=== PATIENT | male | born 1965 | race Caucasian/White ===

== ENCOUNTER 2019-03-13 05:28 | Inpatient (IN) | payer BC ==
[2019-03-13] MEDS ORDERED: Scopolamine 1.5 MG Transdermal Patch TRDERM SCH (05:45)
[2019-03-13] MEDS ORDERED: Gabapentin 300 MG Cap PO ONE (05:45)
[2019-03-13] MEDS ORDERED: Celecoxib 200 MG Cap PO ONE (05:45)
[2019-03-13] MEDS ORDERED: Acetaminophen 500 MG Tab PO ONE (05:45)
[2019-03-13] MEDS ORDERED: Dextrose 5%-Lactated Ringers 1,000 ML IV SCH (06:00)
[2019-03-13] MEDS ORDERED: cefOXitin 2 GM Vial ONE (06:59)
[2019-03-13] MEDS ORDERED: fentaNYL 250 MCG/5 ML SDV ONE ×2 (07:13→07:59)
[2019-03-13] MEDS ORDERED: Ondansetron 4 MG/2 ML SDV ONE (07:14)
[2019-03-13] MEDS ORDERED: Dexamethasone 4 MG/ML SDV ONE (07:14)
[2019-03-13] MEDS ORDERED: Succinylcholine 200 MG/10 ML MDV ONE (07:14)
[2019-03-13] MEDS ORDERED: Propofol 200 MG/20 ML SDV ONE (07:14)
[2019-03-13] MEDS ORDERED: Glycopyrrolate 0.2 MG/ML 5 ML MDV ONE (07:14)
[2019-03-13] MEDS ORDERED: Neostigmine Methylsulfate 1 MG/ML 5 ML Syringe ONE (07:14)
[2019-03-13] MEDS ORDERED: Rocuronium 50 MG/5 ML Vial ONE ×2 (07:14→07:59)
[2019-03-13] MEDS ORDERED: Lactated Ringers 1,000 ML ONE (07:18)
[2019-03-13] MEDS ORDERED: cefOXitin 2 GM in Sodium Chloride 0.9% 50 ML IV ONE (07:30)
[2019-03-13] MEDS ORDERED: Ketamine 50 MG in Sodium Chloride 0.9% 49.5 ML IV SCH (09:00)
[2019-03-13] MEDS ORDERED: Lidocaine 2% 100 MG/5 ML Syringe IVPUSH SCH (09:00)
[2019-03-13] MEDS ORDERED: Lidocaine 0.4%/D5W 2 GM/500 ML BAG IV SCH (09:00)
[2019-03-13] MEDS ORDERED: Ketamine 500 MG/5 ML MDV IV SCH (09:00)
[2019-03-13] MEDS ORDERED: hydrOXYzine HCl 100 MG/2 ML SDV IM ONE (09:40)
[2019-03-13] MEDS ORDERED: HYDROmorphone 1 MG/ML Syringe IV PRN (11:05)
[2019-03-13] MEDS ORDERED: SCOPOLAMINE PATCH CHECK TOP SCH (11:22)
[2019-03-13] MEDS ORDERED: hydrOXYzine HCl 100 MG/2 ML SDV IM PRN (11:22)
[2019-03-13] MEDS ORDERED: Metoclopramide 10 MG/2 ML SDV IVPUSH PRN (11:22)
[2019-03-13] MEDS ORDERED: Labetalol 20 MG/4 ML Syringe IVPUSH PRN (11:22)
[2019-03-13] MEDS ORDERED: diphenhydrAMINE 50 MG/ML SDV IVPUSH PRN (11:22)
[2019-03-13] MEDS: cefOXitin 2 GM in Sodium Chloride 0.9% 50 ML IV SCH ×2 (12:40→17:49)
[2019-03-13] MEDS ORDERED: Pantoprazole 40 MG Vial IVPUSH SCH (13:00)
[2019-03-13] MEDS: Gabapentin 250 MG/5 ML Solution ML 470 ML Bottle PO SCH ×2 (13:54→20:58)
[2019-03-13] MEDS: Dextrose 5%-Lactated Ringers 1,000 ML IV SCH (14:01)
[2019-03-13] MEDS: Ondansetron 4 MG/2 ML SDV IVPUSH PRN (14:02)
[2019-03-13] MEDS ORDERED: MVI, Adult with Vitamin K 10 ML, Thiamine 200 MG, Chromium/Copper/Mang/Selen/Zn 1 ML in... IV SCH ×4 (16:00)
[2019-03-13] MEDS: Acetaminophen 325 MG Tab PO SCH ×2 (16:28→20:59)
[2019-03-13] MEDS ORDERED: Tranexamic Acid 1,000 MG in Sodium Chloride 0.9% 50 ML IV ONE ×2 (16:30→19:30)
[2019-03-13] MEDS ORDERED: Coagulation Factor VIIa Recombinant (per MCG) 2 MG Vial IVPUSH ONE (18:09)
[2019-03-13] MEDS: HYDROmorphone 0.5 MG/0.5 ML Syringe IVPUSH PRN (21:02)
[2019-03-14] MEDS: cefOXitin 2 GM in Sodium Chloride 0.9% 50 ML IV SCH (00:02)
[2019-03-14] MEDS: Dextrose 5%-Lactated Ringers 1,000 ML IV SCH ×2 (00:04→06:51)
[2019-03-14] MEDS: HYDROmorphone 0.5 MG/0.5 ML Syringe IVPUSH PRN ×2 (02:47→07:03)
[2019-03-14] MEDS: Ondansetron 4 MG/2 ML SDV IVPUSH PRN ×4 (02:50→20:20)
[2019-03-14] MEDS ORDERED: Iopamidol 612 MG/ML 50 ML SDV PO ONE (02:59)
[2019-03-14] MEDS: Acetaminophen 325 MG Tab PO SCH ×4 (03:36→22:20)
--- NOTE | 2019-03-14 04:00 | CRLCR ---
Indication: Status post Albaro-en-Y gastric bypass Technique: KUB 2 view Comparison: None Findings/Impression: : Two views of the abdomen demonstrate oral contrast within the distal esophagus, gastric pouch, and duodenum. No definite oral contrast extravasation identified. SALO drain seen in the left upper quadrant. Nonspecific bowel gas pattern. Dictated by Cinda Dacosta MD @ Mar 14 2019 3:57AM Signed by Dr. Cinda Dacosta @ Mar 14 2019 3:58AM
[2019-03-14] MEDS ORDERED: Tranexamic Acid 1,000 MG in Sodium Chloride 0.9% 50 ML IV ONE ×2 (06:54→07:30)
[2019-03-14] MEDS ORDERED: Coagulation Factor VIIa Recombinant (per MCG) 2 MG Vial IVPUSH STA (06:55)
[2019-03-14] MEDS ORDERED: Coagulation Factor VIIa Recombinant (per MCG) 2 MG Vial IVPUSH ONE (07:30)
[2019-03-14] MEDS ORDERED: Ondansetron 4 MG Tab.DIS PO PRN (07:42)
[2019-03-14] MEDS ORDERED: Dextrose 5%-Lactated Ringers 1,000 ML IV SCH (07:45)
[2019-03-14] MEDS: Celecoxib 200 MG Cap PO SCH (08:02)
[2019-03-14] MEDS: Gabapentin 250 MG/5 ML Solution ML 470 ML Bottle PO SCH ×3 (08:52→20:20)
--- NOTE | 2019-03-14 10:39 | PN ---
DATE OF SERVICE: 03/14/2019 SUBJECTIVE: Albin has had quite a bit of leaking around the SALO drain. He did have 2 doses of tranexamic acid and one dose of factor 7. He has been up walking and reported that he is quite sleepy. Vital signs, no fever but he has been tacky since he has been in the hospital and blood pressure has been slightly elevated. Pain has been controlled, he had 2 doses of IV Dilaudid. Remainder of review of systems negative for any pertinent positives and negatives. Oral intake 810, urine output 325 is recorded, and SALO drain 410. OBJECTIVE: GENERAL: Saleem Michelle is a 53-year-old male. He is alert and orientated. He was seen walking in the ro prior to rounds and then sitting in the chair. VITAL SIGNS: TPR is 98.5, 101, 18, blood pressure 161/85. HEENT: Negative. NECK: Supple. HEART: Regular rate and rhythm. LUNGS: Clear. ABDOMEN: Abdominal binder is on. SALO drain has light pink serosanguineous drainage. EXTREMITIES: Without peripheral edema. ASSESSMENT: Laparoscopic sleeve gastrectomy. PLAN: 1. Communication order to give activated VII and tranexamic acid IV now. 2. Discontinue scopolamine patch. 3. Communication order, 3 med cups at bedside, drink 1 every 20 minutes, record. 4. May shower. 5. Step 2 gastric bypass diet with no cereal. 6. Decrease IV to 100 mL per hour. 7. Atarax 25 mg p.o. q.4 hours p.r.n. pain, Zofran ODT 4 mg every 4 hours p.r.n. nausea and vomiting. 8. Discontinue IV Dilaudid and discontinue scopolamine patch. He will be seen by Kd in the Bariatric Department. He misplaced his consultation booklet. Discussion regarding energy protocol and when he can fly postoperatively. We will evaluate p.r.n. or in a.m. Anna Tijerina PA-C /[id number]
[2019-03-14] MEDS: Pantoprazole 40 MG Delayed-Release Granules 1 Packet PO SCH (10:44)
[2019-03-14] MEDS ORDERED: MVI, Adult with Vitamin K 10 ML, Thiamine 200 MG, Chromium/Copper/Mang/Selen/Zn 1 ML in... IV SCH ×4 (16:00)
[2019-03-14] MEDS: Heparin Sodium 5,000 Units/ML Vial SUBCUT SCH (18:51)
[2019-03-14] MEDS: hydrOXYzine HCl 25 MG Tab PO PRN (20:20)
[2019-03-15] MEDS ORDERED: Nitroglycerin 0.4 MG Tab.SL SL ONE (04:54)
[2019-03-15] MEDS: Furosemide 20 MG/2 ML VIAL ONE ×2 (05:00→05:28)
[2019-03-15] MEDS ORDERED: Furosemide 20 MG/2 ML VIAL IVPUSH ONE ×2 (05:15→12:00)
[2019-03-15] MEDS: Acetaminophen 325 MG Tab PO SCH ×4 (05:17→21:08)
[2019-03-15] MEDS ORDERED: Furosemide 20 MG/2 ML VIAL IVPUSH SCH (05:30)
[2019-03-15] MEDS ORDERED: Sodium Chloride 0.9% 100 ML IV STA (05:37)
[2019-03-15] MEDS ORDERED: Iopamidol 755 Mg/ML 100 ML Bottle IV STA (05:37)
[2019-03-15] MEDS: Heparin Sodium 5,000 Units/ML Vial SUBCUT SCH (06:56)
--- NOTE | 2019-03-15 06:59 | PCM.CONS ---
H&P History of Present Illness - General Date of Service: 03/15/19 Admit Problem/Dx: Admission Diagnosis/Problem Admission Diagnosis/Problem Gastrectomy Source of Information: Patient, Provider History Limitations: Reports: No Limitations - History of Present Illness Initial Comments - Free Text/Narative: CC: I got dizzy and my chest was tight HPI: Saleem is postop day 2 following a gastric sleeve. His immediate postop period was complicated by some bleeding and he did receive tranexamic acid as well as activated factor VII. I was asked to see him early this morning by Dr. Beach regarding chest tightness. The patient reports that he got out of bed to go to the bathroom. He was dizzy and a little lightheaded. He also developed mild to moderate chest tightness in the upper portion of his chest. He described the pain as pulsating or spasm-like. The pain did not radiate. He did not have associated nausea, shortness of breath or diaphoresis. Dr. Beach was contacted and he received a dose of nitroglycerin which relieved the pain. He is not aware of anything that makes the pain worse. He has never had pain like this before. He has not had a good bowel movement yet since surgery. He does intermittently require oxygen but does not feel significantly short of breath. Vital signs have been stable since he had some hypertension in the immediate postoperative period. He has not had any fevers. 6 Pain Score (Numeric/FACES): 6 - Related Data Allergies/Adverse Reactions: Allergies Allergy/AdvReac Type Severity Reaction Status Date / Time No Known Allergies Allergy Verified 03/13/19 05:54 Home Medications: Home Meds Multivitamin [Multivitamins] 2 tab PO DAILY 03/10/19 [History] Sildenafil [Revatio] 1 - 5 tab PO ASDIRECTED PRN 03/10/19 [History] Ibuprofen 400 mg PO ASDIRECTED PRN 03/13/19 [History] Past Medical History HEENT History: Reports: Impaired Vision Other HEENT History: wears glasses Neurological History: Reports: Concussion, Head Trauma Endocrine/Metabolic History: Reports: Obesity/BMI 30+ - Infectious Disease History Infectious Disease History: Reports: Chicken Pox - Past Surgical History HEENT Surgical History: Reports: Oral Surgery Other HEENT Surgeries/Procedures: wisdom tooth extraction in December GI Surgical History: Reports: Hernia Repair/Other Social & Family History - Family History Cardiac: Reports: Hypertension Respiratory: Reports: Asthma Endocrine/Metabolic: Reports: Diabetes, Type I Oncologic: Reports: Lung - Tobacco Use Smoking Status *Q: Former Smoker Years of Tobacco use: 10 Used Tobacco, but Quit: Yes Month/Year Tobacco Last Used: 2008 Second Hand Smoke Exposure: No - Caffeine Use Caffeine Use: Reports: Coffee - Alcohol Use Alcohol Use History: No - Recreational Drug Use Recreational Drug Use: No H&P Review of Systems - Review of Systems: Review Of Systems: See Below Free Text/Narrative: A complete 12 point review of systems was obtained. Pertinent positives and negatives are noted in the history of present illness. All other systems were reviewed and were negative except as noted. Exam - Exam Exam: See Below - Vital Signs Vital Signs: Last Vital Signs Temp 37.3 C 03/15/19 06:37 Pulse 101 H 03/15/19 06:37 Resp 18 03/15/19 06:37 BP 145/80 H 03/15/19 06:37 Pulse Ox 92 L 03/15/19 06:37 Weight: 148.053 kg - Exam Quality Assessment: No: Supplemental Oxygen General: Alert, Oriented, Cooperative. No: Mild Distress HEENT: Conjunctiva Clear, Mucosa Moist & [place]. No: Scleral Icterus Neck: Supple, Trachea Midline. No: Lymphadenopathy Lungs: Clear to Auscultation, Normal Respiratory Effort Cardiovascular: Regular Rhythm, Tachycardia. No: Systolic Murmur GI/Abdominal Exam: Normal Bowel Sounds, Soft, No Distention Extremities: No Pedal Edema. No: Increased Warmth Skin: Warm, Dry Neuro Extensive - Mental Status: Alert, Oriented x3, Nl Response to Commands Neuro Extensive - Motor, Sensory, Reflexes: No: Dysarthria, Abnormal Motor, Tremor Psychiatric: Alert, Normal Affect - Patient Data Lab Results Last 24 hrs: Laboratory Results - last 24 hr 03/15/19 03/15/19 Range/Units 05:00 05:00 WBC 14.3 H (4.5-11.0) K/uL RBC 3.83 L (4.30-5.90) M/uL Hgb 10.9 L (12.0-15.0) g/dL Hct 34.3 L (40.0-54.0) % MCV 90 (80-98) fL MCH 29 (27-31) pg MCHC 32 (32-36) % Plt Count 279 (150-400) K/uL Neut % (Auto) 66 (36-66) % Lymph % (Auto) 24 (24-44) % [place] % (Auto) 7 H (2-6) % Eos % (Auto) 2 (2-4) % Baso % (Auto) 0 (0-1) % Sodium 136 L (140-148) mmol/L Potassium 4.0 (3.6-5.2) mmol/L Chloride 103 (100-108) mmol/L Carbon Dioxide 26 (21-32) mmol/L Anion Gap 11.0 (5.0-14.0) mmol/L BUN 13 (7-18) mg/dL Creatinine 1.3 (0.8-1.3) mg/dL Est Cr Clr Drug Dosing 68.63 mL/min Estimated GFR (MDRD) 58 L (>60) Glucose 106 (74-106) mg/dL Calcium 8.1 L (8.5-10.1) mg/dL Total Bilirubin 0.4 (0.2-1.0) mg/dL AST 27 (15-37) U/L ALT 33 (12-78) U/L Alkaline Phosphatase 66 (46-116) U/L Troponin I < 0.017 (0.000-0.056) ng/mL Total Protein 6.1 L (6.4-8.2) g/dL Albumin 2.8 L (3.4-5.0) g/dL Globulin 3.3 (2.3-3.5) g/dL Albumin/Globulin Ratio 0.9 L (1.2-2.2) Result Diagrams: 03/15/19 05:00 03/15/19 05:00 Imaging Impressions Last 24 hrs: CT pulmonary angiogram -images personally reviewed -no obvious evidence for pulmonary embolism though the contrast timing was suboptimal. There is no obvious large pulmonary embolism identified. He does have some mild inferior atelectasis. No other significant abnormalities. EKG -this image was also personally reviewed -he has a sinus tachycardia with a right bundle branch block. There are no ST segment changes concerning for acute ischemia. Consult PN Assessment/Plan POD#: 2 Procedures: Procedures BLOOD TYPING SEROLOGIC ABO (03/14/18) BLOOD TYPING SEROLOGIC RH(D) (03/14/18) RBC ANTIBODY SCREEN (03/14/18) Problem List Initiated/Reviewed/Updated: Yes My Orders Last 24 Hours: My Active Orders 03/15/19 06:58 Convert IV to Saline Lock [OM.PC] Routine 03/15/19 10:00 TROPONIN I [CHEM] Timed Plan: ASSESSMENT AND PLAN - Atypical chest pain -spasm-like pain associated with some dizziness this morning. Vital signs relatively stable other than mild hypoxia which was transient this morning. Pain resolved after nitroglycerin. Troponin normal. EKG nonischemic. CT pulmonary angiogram showed some atelectasis but no evidence for pulmonary embolism. I suspect this is pain related to his surgery rather than acute coronary syndrome or anginal type chest pain. -Repeat troponin in 3 hours, no additional treatment necessary if second troponin is unremarkable -Reassess if pain recurs Status post gastric sleeve -he did have some bleeding difficulty yesterday morning but this has resolved and he had been doing well postoperatively prior to the episode this morning. -Postoperative care as per surgical team Wilner Morton MD Requesting Provider: Dr. Beach Date Consult Requested: 03/15/19 Reason for Consult: Chest pain Patient History Reviewed: Yes Admission H&P Reviewed: Yes Notified Requestor: Yes Time Spent (in minutes): 60
--- NOTE | 2019-03-15 07:23 | CRLCT ---
INDICATION: Chest pain. Status post Albaro-en-Y TECHNIQUE: CT chest pulmonary PE protocol acquired with 100 cc Isovue 370 IV contrast. COMPARISON: None FINDINGS: Cardiovascular structures: Suboptimal opacification of the pulmonary arteries. Although no large central pulmonary embolus is seen, the remainder of the pulmonary arterial tree cannot be adequately evaluated with this exam. Heart size is normal. No sign of aneurysm or dissection in the thoracic aorta. Mediastinum and iss: No mass or adenopathy. Lungs: Linear atelectasis in both lower lobes. Pleura and pericardium: No effusions. Chest wall and axilla: No mass or adenopathy. Upper abdomen: Postoperative changes of a gastric bypass procedure. ASLO drain in the left upper quadrant. Bones: No significant findings. IMPRESSION: Suboptimal opacification of the pulmonary arteries. Although no large central pulmonary embolus is seen, the remainder of the pulmonary arterial tree cannot be adequately evaluated with this exam. Linear atelectasis in both lower lobes. Postoperative changes of a gastric bypass procedure. No postoperative complication identified in the upper abdomen. Please note that all CT scans at this facility use dose modulation, iterative reconstruction, and/or weight-based dosing when appropriate to reduce radiation dose to as low as reasonably achievable. Dictated by Cinda Dacosta MD @ Mar 15 2019 7:15AM Signed by Dr. Cinda Dacosta @ Mar 15 2019 7:21AM
[2019-03-15] MEDS: Celecoxib 200 MG Cap PO SCH (07:48)
[2019-03-15] MEDS ORDERED: Calcium Carbonate 500 MG Tab.Chew PO PRN (08:37)
[2019-03-15] MEDS ORDERED: Sodium Chloride 0.9% 10 ML Syringe IV PRN (08:55)
[2019-03-15] MEDS ORDERED: Cyanocobalamin (Vitamin B12) 1,000 MCG/ML SDV IM ONE (09:00)
[2019-03-15] MEDS: Gabapentin 250 MG/5 ML Solution ML 470 ML Bottle PO SCH ×3 (10:04→21:07)
[2019-03-15] MEDS: Potassium Chloride 20 MEQ, Lidocaine 1% 2 ML in Sodium Chloride 0.9% 100 ML IV SCH ×2 (11:21→13:45)
[2019-03-15] MEDS: Pantoprazole 40 MG Delayed-Release Granules 1 Packet PO SCH (11:22)
[2019-03-15] MEDS: hydrOXYzine HCl 25 MG Tab PO PRN (19:01)
[2019-03-16] MEDS: Acetaminophen 325 MG Tab PO SCH ×3 (03:14→09:00)
[2019-03-16] MEDS: Celecoxib 200 MG Cap PO SCH (07:42)
[2019-03-16] MEDS: Gabapentin 250 MG/5 ML Solution ML 470 ML Bottle PO SCH (08:46)
[2019-03-16] MEDS: hydrOXYzine HCl 25 MG Tab PO PRN (09:55)
--- NOTE | 2019-03-16 12:47 | PN ---
DATE OF SERVICE: 03/15/2019 The patient has been afebrile with stable vital signs, mildly hypertensive this morning. Early this morning, on walking, he was noted to have some chest pain and lightheadedness. Workup included EKG, troponin levels, and CT scan of the chest with PE protocol, all of which were negative. He is now feeling fairly comfortable. He did get a dose of Lasix and had a large volume of urine output with that. Overall, the patient appears to be stable. We will repeat a troponin at 10 a.m. and then give him one additional dose of IV Lasix this morning and some supplemental potassium. His scopolamine patch will go off as well, and if he remains stable, he will be discharged home tomorrow. The patient was seen by Dr. Morton of Internal Medicine Department who agrees with the overall findings and plan. Houston Beach MD Job #: [id number]
--- NOTE | 2019-03-17 08:47 | DISCH ---
FINAL DIAGNOSES: 1. Morbid obesity. 2. Paraesophageal diaphragmatic hernia. 3. Marked hepatomegaly. 4. History of pulmonary hypertension. 5. History of post-traumatic stress disorder. 6. Episode of postoperative chest pain with negative cardiac and pulmonary embolism workup. SUMMARY: This is a 53-year-old male presenting with longstanding morbid obesity and increasingly significant comorbidities. After preoperative evaluation and discussion, he wished to proceed with a sleeve gastrectomy. This was done on the date of admission, along with concurrent repair of paraesophageal diaphragmatic hernia and liver biopsy. Postoperatively, the patient had a tendency to ooze from his SALO drain, likely related to preoperative ibuprofen use, but that was controlled with a combination of activated factor VII and tranexamic acid. The patient, on postop day 2, early in the morning, developed chest pain along with lightheadedness. Workup of cardiac, including of EKG and troponin levels, was negative. CT scan angiography of the chest showed no evidence of pulmonary embolism. Since that episode, he has had no further problems. He will be discharged home after being observed 1 day after the episode of the chest pain. The patient will be instructed to stay on a liquid diet until 04/13/2019, and then he will continue his usual medications plus Tylenol 1 g q.i.d. p.r.n. He would not need any narcotics postoperatively. Followup will be with Anna Tijerina at [facility] in [place] on 03/25/2019.
--- NOTE | 2019-03-19 14:02 | OR ---
DATE OF PROCEDURE: 03/13/2019 SURGEON: Houston Beach MD PREOPERATIVE DIAGNOSIS: Morbid obesity. POSTOPERATIVE DIAGNOSES: 1. Morbid obesity. 2. Marked hepatomegaly. 3. Paraesophageal diaphragmatic hernia. OPERATIVE PROCEDURES: 1. Laparoscopic sleeve gastrectomy (75281). 2. Renato-Cut needle liver biopsy (12773). 3. Repair of paraesophageal diaphragmatic hernia (94155). ANESTHESIA: General. GATE CUTTER: Anna Tijerina PA-C, and JUAN Lamar3. INDICATIONS FOR PROCEDURE: This is a 53-year-old male presenting with longstanding morbid obesity and increasingly significant comorbidities. After preoperative evaluation and discussion, he wished to proceed with a sleeve gastrectomy. Potential risks of the procedure including bleeding, infection, leaks from GI tract staple lines, as well as possibility of cardiopulmonary, septic, or hemorrhagic complications leading to were discussed, and the patient wishes to proceed. DETAILS OF PROCEDURE: The patient was taken to the operating room and placed in a supine position. After general endotracheal anesthesia was induced, he was converted to a lithotomy position and the abdomen prepped and draped. At 15 cm inferior and 5 cm left of the xiphoid process, a transverse incision was made. The peritoneal cavity was entered under direct vision with an Optiview trocar and inflated to 15 mmHg pressure of CO2. Laparoscope was then reinserted. No underlying trocar insertion site injuries were seen. Following this, 5 additional trocars were placed across the upper mid abdomen and general exploration was undertaken. The patient was noted to have marked hepatomegaly and Renato-Cut needle liver biopsies were obtained from left lobe of liver. Minimal bleeding from biopsy sites was seen. Bilateral transversus abdominis plane blocks were then placed. The liver was then retracted anteriorly. The patient was noted to have a moderate-sized paraesophageal diaphragmatic hernia. This was reduced and the peritoneum overlying incised and reflected downward. An anterior repair of the diaphragmatic hernia was then accomplished with 0 Ethibond sutures and reinforced with PTFE pledgets. At this point, the greater omentum was excised from the greater curvature of the stomach beginning 2 cm proximal to the pylorus through the short gastric vessels, including the highest posterior short gastric vessels. The left diaphragmatic devonte was then skeletonized of any soft tissue to allow full mobilization of the gastric fundus. At this point, the resectional phase began. The staple line for the antrum and area underneath the incisura angularis was then mapped out with electrocautery, and the first three firings of the gastrectomy were then accomplished with DUSTY black loads. At that point, a 32-Kiswahili sizing catheter was then placed orally and then positioned along the lesser curvature of the stomach and from there into the antrum, and this was then pulled up snugly against the lesser curvature and suction applied. The remainder of the sleeve gastrectomy excision was then accomplished with a combination of black and purple reinforced DUSTY loads. At that point, the gastrectomy was found to be complete. We did veer off slightly behind the stomach at the esophagogastric junction so as to avoid the likelihood of leaks to that area. The staple line was then inspected and reinforced with fibrin sealant. Omentum was then pulled up along the entire length of the staple line. The GI tract sizing catheter was then taken off suction and air injected to attempt to extend the remaining stomach while the pylorus was compressed, and the area was submerged with antibiotic-containing saline solution, and no leaks were identified. At that point, the catheter was then withdrawn. A single Garland-Garcia drain was taken out through the left lateral trocar site, and the gastric specimen was retrieved through that site as well. The trocars were then removed and peritoneal cavity deflated. The fascia at the left lateral trocar site was closed with 0 Vicryl stitch and the skin at each incision with 4-0 Vicryl skin stitch. Dressing was applied. The patient was taken to the recovery room in satisfactory condition. Physician hospital clinic assistant, Anna Tijerina, played an essential role in assisting in this case, helping to position the patient, retract structures as needed, as well as suturing and cutting sutures when indicated. Her presence improved patient safety and decreased the operative time. Houston Beach MD /[id number]
== END 2019-03-16 10:20 | disposition home or self-care (01) | DRG 403 ==
LOC: JP.SDSSCHI 05:28 → JP.SDS 05:28 → EDSTATUS 08:30 → JP.MS 09:05
PROVIDERS: ADMIT Surgery; ATTEND Surgery
PROC: 0DB64Z3 Excision of Stomach, Percutaneous Endoscopic Approach, Vertical (ICD-10-PCS; principal; 2019-03-13)
PROC: 0FB24ZX Excision of Left Lobe Liver, Percutaneous Endoscopic Approach, Diagnostic (ICD-10-PCS; 2019-03-13)
PROC: 0BQT4ZZ Repair Diaphragm, Percutaneous Endoscopic Approach (ICD-10-PCS; 2019-03-13)
DX: E66.01 Morbid (severe) obesity due to excess calories (principal); K44.9 Diaphragmatic hernia without obstruction or gangrene; R16.0 Hepatomegaly, not elsewhere classified; I27.20 Pulmonary hypertension, unspecified; R42 Dizziness and giddiness; J95.812 Postprocedural air leak; R07.89 Other chest pain; G47.00 Insomnia, unspecified; F43.10 Post-traumatic stress disorder, unspecified; N52.9 Male erectile dysfunction, unspecified; M54.30 Sciatica, unspecified side; Z79.899 Other long term (current) drug therapy; Z98.890 Other specified postprocedural states; Z68.41 Body mass index [BMI] 40.0-44.9, adult; Z87.891 Personal history of nicotine dependence
CPT/HCPCS: 36415; 51798; 71275; 74240; 80053; 82962; 84484; 85025; 86850; 86900; 86901; 88307; 88313; 93005; A9270-GY; C9113; J0171; J0330; J0694; J1100; J1170; J1644; J1940; J2001; J2405; J2704; J2710; J2795; J3010; J3410; J3411; J3420; J3480; J3490; J7050; J7120; J7121; J7189; Q9967